=== PATIENT | female | born 1960 | race African-American/Black ===

== ENCOUNTER → 2019-03-25 | Outpatient (CLI) | payer BC ==
[2015-04-27 11:30] VITALS: BP 126/86
[~2019-03-25] MED LIST: AMLO5TAB10 PO; BECL8.7A6 IH; BECL8.7H NS; MONT10TA49 PO; MULT1TAB52 PO; POTA20TA12 PO; POTA25TA4 PO
--- NOTE | 2019-04-03 12:39 | KCIC ---
Bilateral digital screening mammograms with 3-D tomosynthesis: Reason for examination: Routine screening. Comparison is made to previous studies dated 01/28/2015 and 07/10/2013. Bilateral mammograms in CC and oblique projections were obtained with 2-D imaging and 3-D tomosynthesis imaging on a Siemens Inspiration unit and reviewed on the workstation. Interpretation was made with the benefit of CAD. The skin and nipples show no abnormalities. No abnormal axillary lymph nodes are seen. The breast parenchyma is heterogeneously dense. (Breast density: Category C.) There is a small circumscribed nodule present in the lower inner quadrant of the left breast at approximately the 7:30 position approximately 3.5 cm from the nipple and measuring approximately 6 mm in size. There also appears to be small nodular density in the retroareolar 9:00 position of the right breast approximately 1.5 cm from the nipple and measuring approximately 7 mm in size. Further evaluation of these nodules with ultrasound is recommended. There are no other new dominant masses, suspicious calcifications or architectural distortion. Impression: Nodular densities at the 7:30 position 3.5 cm from the nipple of the left breast and in the right retroareolar 9:00 position approximately 1.5 cm from the nipple. Recommend further evaluation with ultrasound. Your patient's mammogram demonstrates that she has dense breast tissue (breast density category C or D), which could hide abnormalities, and if she has other risk factors for breast cancer that have been identified, she might benefit from supplemental screening tests that may be suggested by you as her ordering physician. Dense breast tissue, in and of itself, is a relatively common condition. Therefore, this information is not provided to cause undue concern, but rather to raise your awareness and to promote discussion with your patient regarding the presence of other risk factors, in addition to dense breast tissue. Your patient's mammography results will be sent to her. BI-RAD Category 0: Incomplete. Needs additional imaging evaluation. "Our facility is accredited by the [employer] Mammography [employer]." This patient's information has been entered into a reminder system for the patient to be notified with the results of her examination and a target date for the next mammogram. Electronically signed by: Danielle Abdi MD (04/03/2019 12:36 PM) [facility]
== END | disposition home or self-care (01) ==
LOC: KCIC MAMMO 12:06
PROVIDERS: ATTEND Pediatrics
DX: Z12.31 Encounter for screening mammogram for malignant neoplasm of breast (principal); N63.24 Unspecified lump in the left breast, lower inner quadrant
CPT/HCPCS: 77063; 77067

== ENCOUNTER 2019-08-14 10:02 | Emergency (ER) | payer BC ==
[~2019-08-14] VITALS: Ht 167.6 cm; Wt 70.3 kg
[2019-08-14 11:00] VITALS: BP 129/86
[2019-08-14] MEDS ORDERED: ORPH100T PO (11:29)
[2019-08-14] MEDS ORDERED: IBUP-1007 PO (11:29)
--- NOTE | 2019-08-14 11:30 | PHYS DOC ---
Past Medical History Past Medical History: Hypertension (SARIKA LALA APRN) Past Surgical History: Hysterectomy (SARIKA LALA APRN) Alcohol Use: None Drug Use: None (SARIKA LALA APRN) Adult General Chief Complaint Chief Complaint: LOWER BACK PAIN OR INJURY [facility] HPI Patient is a 59 year old AA female who presents to the emergency department with complaints of intermittent right-sided low back pain that radiates down her leg and into her foot. Patient states that the symptoms began after moving furniture on . She denies any injury, dysuria, hematuria, increased urinary frequency, weakness of her lower extremities, or fever. Patient states that her second through fifth toes have felt numb intermittently since yesterday. She denies any pain at this time. Patient states that she took a hydrocodone 5/325 mg tablet earlier this morning. She states that she only experiences the pain with ambulation and position changes, rest has helped to decrease the pain as well as the pain pill that she took this morning. All other ROS is neg unless otherwise noted in HPI. (SARIKA LALA APRN) Review of Systems Review of Systems See Above (SARIKA LALA APRN) Allergies Allergies Allergies Coded Allergies Type Severity Reaction Last Updated Verified lisinopril Adverse Reaction Intermediate 04/26/15 Yes (PHILIPP PHAM DO) Physical Exam Physical Exam See Above Constitutional: Well developed, well nourished, no acute distress, non-toxic appearance. [] HENT: Normocephalic, atraumatic, bilateral external ears normal, nose normal. [] Eyes: PERRLA, EOMI, conjunctiva normal, no discharge. [] Neck: Normal range of motion, no stridor. [] Cardiovascular:Heart rate regular rhythm Lungs & Thorax: Respirations even and unlabored, no retractions, no respiratory distress Skin: Warm, dry, no erythema, no rash. [] Back: No tenderness, no CVA tenderness. [] Extremities: No cyanosis, ROM intact, no edema. [] Neurologic: Alert and oriented X 3, no focal deficits noted. [] Psychologic: Affect normal, judgement normal, mood normal. [] (SARIKA LALA APRN) Current Patient Data Vital Signs Vital Signs Date Time Temp Pulse Resp B/P (MAP) Pulse Ox O2 Delivery O2 Flow Rate FiO2 08/14/19 11:00 98.1 76 16 129/86 (100) 98 Room Air 98.1 (PHILIPP PHAM DO) EKG EKG [] (SARIKA LALA APRN) Radiology/Procedures Radiology/Procedures [] (SARIKA LALA APRN) Course & Med Decision Making Course & Med Decision Making Pertinent Labs and Imaging studies reviewed. (See chart for details) [] (SARIKA LALA APRN) Dragon Disclaimer Dragon Disclaimer This electronic medical record was generated, in whole or in part, using a voice recognition dictation system. (SARIKA LALA APRN) Departure Departure Impression: Primary Impression: Acute right-sided low back pain without sciatica Disposition: HOME, SELF-CARE Condition: STABLE Referrals: KOJO CHAVEZ MD (PCP) Patient Instructions: Sciatica with [facility] Additional Instructions: Fill the prescription(s) and use as directed. Apply heat or ice for to sore areas as needed for comfort. Activity as tolerated. Follow up with your primary care doctor if symptoms persist, return to the ER if symptoms worsen. Scripts Orphenadrine Citrate (ORPHENADRINE CITRATE) 100 Mg Tablet.er 1 TAB PO BID PRN for PAIN for 10 Days, #20 TAB 0 Refills Prov: SARIKA LALA APRN 08/14/19 Ibuprofen (IBUPROFEN) 600 Mg Tablet 600 MG PO PRN Q6HRS PRN for INFLAMMATION for 10 Days, #40 TAB 0 Refills Prov: SARIKA LALA APRN 08/14/19 Attending Signature Attending Signature I have reviewed the PA/TELEVISION TECHNICIAN's note and plan of care. I was available for consultation as needed during the patient's visit in the emergency department. I agree with the clinical impression, plan, and disposition. (PHILIPP PHAM DO) SARIKA LALA APRN Aug 14, 2019 11:30 PHILIPP PHAM DO Aug 15, 2019 11:11
== END 2019-08-14 11:38 | disposition home or self-care (01) ==
LOC: ER 10:02
DX: M54.5 Low back pain (principal); R20.0 Anesthesia of skin; I10 Essential (primary) hypertension; Z90.710 Acquired absence of both cervix and uterus; Z88.8 Allergy status to other drugs, medicaments and biological substances
CPT/HCPCS: 99283